=== PATIENT | male | born 1965 | race Caucasian/White ===

== ENCOUNTER 2023-12-01 11:12 | Day surgery (SDC) | payer BC ==
[2023-11-27 10:08] VITALS: BMI 36.9
[2023-12-01] MEDS: IV FLUID CONTINUATION 1,000 ML IV ONE (12:19)
[2023-12-01 12:29] VITALS: TEMP 96.8
[2023-12-01] MEDS ORDERED: PROPOFOL 10 MG/ML 20 ML VIAL IV ONE (12:46)
--- NOTE | 2023-12-01 12:48 | P.GSHP ---
History of Present Illness H&P Date: 12/01/23 58-year-old male here for colonoscopy. Last colonoscopy many many years ago he says. No bowel complaints. Family history of stomach cancer in his maternal grandmother. Past Medical History Past Medical History: Hypertension History of Any Multi-Drug Resistant Organisms: None Reported Past Surgical History: Orthopedic Surgery, Tonsillectomy Additional Past Surgical History / Comment(s): rotator cuff right, colonoscopy Past Anesthesia/Blood Transfusion Reactions: No Reported Reaction Additional Past Anesthesia/Blood Transfusion Reaction / Comment(s): no blood transfusion Smoking Status: Never smoker - Past Family History Mother Family Medical History: Cancer, Pulmonary Embolus Additional Family Medical History / Comment(s): bladder Medications and Allergies Home Medications Medication Instructions Recorded Confirmed Type Escitalopram [Lexapro] 5 mg PO HS 11/27/23 11/27/23 History Losartan [Cozaar] 50 mg PO HS 11/27/23 11/27/23 History Allergies Allergy/AdvReac Type Severity Reaction Status Date / Time cephalexin [From Keflex] AdvReac Rash/Hives Verified 12/01/23 12:20 Surgical - Exam Vital Signs Temp Pulse Resp BP Pulse Ox 96.8 F L 61 18 180/94 98 12/01/23 12:26 12/01/23 12:26 12/01/23 12:26 12/01/23 12:26 12/01/23 12:26 Physical exam: General: Well-developed, well-nourished HEENT: Normocephalic, sclerae nonicteric Abdomen: Nontender, nondistended Extremities: No edema Neuro: Alert and oriented Assessment and Plan (1) Colon cancer screening Narrative/Plan: Will proceed with colonoscopy at this time. Current Visit: Yes Status: Acute Code(s): Z12.11 - ENCOUNTER FOR SCREENING FOR MALIGNANT NEOPLASM OF COLON SNOMED Code(s): 387650036
--- NOTE | 2023-12-01 13:05 | P.PCN ---
Date of Procedure: 12/01/23 Procedure(s) Performed: PREOPERATIVE DIAGNOSIS: Colon cancer screening POSTOPERATIVE DIAGNOSIS: Transverse colon polyp, rectal polyp, diverticulosis PROCEDURE: Colonoscopy with snare polypectomy ANESTHESIA: MAC SURGEON: Reid Perdomo M.D. SPECIMENS: Polyps ENDOSCOPIC PROCEDURE: The patient was placed on the endoscopy table in the left decubitus position. The Olympus colonoscope was inserted into the anus and passed under direct visualization to the base of the cecum. The appendiceal orifice was visualized. From that point the scope was slowly withdrawn inspecting all surfaces carefully. There were no neoplastic inflammatory or polypoid lesions throughout the cecum and ascending colon. In the transverse colon a small polyp was seen and removed using the snare with cautery technique. Remainder of the transverse descending and sigmoid colon appeared normal. In the rectum another small polyp was seen and removed in a similar fashion. Mild scattered diverticulosis was seen. Digital rectal examination was normal. The patient was taken to the recovery room in stable condition per anesthesia guidelines. RECOMMENDATIONS: Await biopsy results.
[2023-12-01] MEDS ORDERED: LACTATED RINGERS 1,000 ML IV SCH (13:14)
[2023-12-01 13:27] VITALS: BP 152/89; PULSE 60; RESP 18
== END 2023-12-01 13:38 | disposition home or self-care (01) ==
LOC: ORWHC2ENDO 11:12
PROVIDERS: ATTEND Surgery
DX: Z12.11 Encounter for screening for malignant neoplasm of colon (principal); D12.3 Benign neoplasm of transverse colon; K57.30 Diverticulosis of large intestine without perforation or abscess without bleeding; D12.8 Benign neoplasm of rectum; I10 Essential (primary) hypertension; F41.9 Anxiety disorder, unspecified; Z80.0 Family history of malignant neoplasm of digestive organs; Z88.1 Allergy status to other antibiotic agents; Z90.89 Acquired absence of other organs; Z79.899 Other long term (current) drug therapy; Z98.890 Other specified postprocedural states
CPT/HCPCS: 45385; J2704; 88305

== ENCOUNTER 2024-08-02 10:26 | Emergency (ER) | payer BC ==
[2024-08-02 11:17] VITALS: RESP 20
--- NOTE | 2024-08-02 11:33 | ED ---
General Adult HPI - General Source: patient, family, RN notes reviewed Mode of arrival: ambulatory Limitations: no limitations <Wendie Wyatt - Last Filed: 08/02/24 19:18> <Rebekah Lauren - Last Filed: 08/03/24 22:35> - General Chief complaint: Allergic Reaction Stated complaint: congestion Time Seen by Provider: 08/02/24 11:29 - History of Present Illness Initial comments: 58-year-old male with history of hypertension presenting for anterior neck swelling X 1 day. Reports flulike symptoms such as nasal congestion and cough last week. Cough has become more productive. He is concerned because last night he began to feel swelling in his throat with a palpable nodule on the right side. He is able to swallow his own secretions with no difficulty swallowing or breathing. Denies drooling. He was sent from urgent care for CT scan of the neck. (Wendie Wyatt) - Related Data Home Medications Medication Instructions Recorded Confirmed Escitalopram [Lexapro] 5 mg PO HS 11/27/23 11/27/23 Losartan [Cozaar] 50 mg PO HS 11/27/23 11/27/23 Allergies Allergy/AdvReac Type Severity Reaction Status Date / Time cephalexin [From Keflex] AdvReac Rash/Hives Verified 12/01/23 12:20 Review of Systems ROS Other: All systems not noted in ROS Statement are negative. <Wendie Wyatt - Last Filed: 08/02/24 19:18> ROS Other: All systems not noted in ROS Statement are negative. <Rebekah Lauren - Last Filed: 08/03/24 22:35> ROS Statement: Those systems with pertinent positive or pertinent negative responses have been documented in the HPI. Past Medical History Past Medical History: Hypertension History of Any Multi-Drug Resistant Organisms: None Reported Past Surgical History: Orthopedic Surgery, Tonsillectomy Additional Past Surgical History / Comment(s): rotator cuff right, colonoscopy Past Anesthesia/Blood Transfusion Reactions: No Reported Reaction Additional Past Anesthesia/Blood Transfusion Reaction / Comment(s): no blood tr ansfusion Past Psychological History: No Psychological Hx Reported Smoking Status: Never smoker - Past Family History Mother Family Medical History: Cancer, Pulmonary Embolus Additional Family Medical History / Comment(s): bladder <Wendie Wyatt - Last Filed: 08/02/24 19:18> General Exam Limitations: no limitations General appearance: alert, in no apparent distress Head exam: Present: atraumatic, normocephalic, normal inspection Eye exam: Present: normal appearance, PERRL, EOMI. Absent: scleral icterus, conjunctival injection, periorbital swelling ENT exam: Present: normal exam, normal oropharynx, mucous membranes moist Neck exam: Present: full ROM. Absent: normal inspection (Edema and tenderness present prominently on the right side of neck), tenderness, meningismus, lymphadenopathy Respiratory exam: Present: normal lung sounds bilaterally, wheezes (Mild expiratory wheezes bilaterally). Absent: respiratory distress, rales, rhonchi, stridor Cardiovascular Exam: Present: regular rate, normal rhythm, normal heart sounds. Absent: systolic murmur, diastolic murmur, rubs, gallop, clicks Neurological exam: Present: alert, oriented X3 Psychiatric exam: Present: normal affect, normal mood Skin exam: Present: warm, dry, intact, normal color. Absent: rash <Wendie Wyatt - Last Filed: 08/02/24 19:18> Course Vital Signs 08/02/24 08/02/24 08/02/24 11:13 13:19 14:45 Temperature 99.7 F H 98.4 F 98.9 F Pulse Rate 84 78 Respiratory 20 20 Rate Blood Pressure 187/106 174/92 O2 Sat by Pulse 94 L 95 Oximetry Medical Decision Making - Lab Data Result diagrams: 08/02/24 11:42 08/02/24 11:42 <Wendie Wyatt - Last Filed: 08/02/24 19:18> - Lab Data Result diagrams: 08/02/24 11:42 08/02/24 11:42 <Rebekah Lauren - Last Filed: 08/03/24 22:35> - Medical Decision Making Was pt. sent in by a medical professional or institution (, PA, SULFONATION EQUIPMENT OPERATOR, urgent care, hospital, or group home...) When possible be specific @ -No Did you speak to anyone other than the patient for history (EMS, parent, family, police, friend...)? What history was obtained from this source @ -No Did you review nursing and triage notes (agree or disagree)? Why? @ -I reviewed and agree with nursing and triage notes Were old charts reviewed (outside hosp., previous admission, EMS record, old EKG, old radiological studies, urgent care reports/EKG's, group home records)? Report findings @ -No old charts were reviewed Differential Diagnosis (chest pain, altered mental status, abdominal pain women, abdominal pain men, vaginal bleeding, weakness, fever, dyspnea, syncope, headache, dizziness, GI bleed, back pain, seizure, CVA, palpatations, mental health, musculoskeletal)? @ -Viral URI, COVID-19, influenza, pneumonia, allergic reaction EKG interpreted by me (3pts min.). @ -None X-rays interpreted by me (1pt min.). @ -Chest x-ray reveals no acute process CT interpreted by me (1pt min.). @ -CT soft tissue neck reveals marked maxillary and ethmoid sinusitis, questio nable prominence of retropharyngeal soft tissues however no retropharyngeal abscess or discrete fluid collection U/S interpreted by me (1pt. min.). @ -None done What testing was considered but not performed or refused? (CT, X-rays, U/S, labs)? Why? @ -None What meds were considered but not given or refused? Why? @ -None Did you discuss the management of the patient with other professionals (manju brownlee i.e. , PA, SULFONATION EQUIPMENT OPERATOR, lab, RT, psych nurse, web content & social media manager, etl tester, teacher, business services officer, major case detective)? Give summary @ -No Was smoking cessation discussed for >3mins.? @ -No Was critical care preformed (if so, how long)? @ -No Were there social determinants of health that impacted care today? How? (Homelessness, low income, unemployed, alcoholism, drug addiction, transportation, low edu. Level, literacy, decrease access to med. care, snf, rehab)? @ -No Was there de-escalation of care discussed even if they declined (Discuss DNR or withdrawal of care, Hospice)? DNR status @ -No What co-morbidities impacted this encounter? (DM, HTN, Smoking, COPD, CAD, Cancer, CVA, ARF, Chemo, Hep., AIDS, mental health diagnosis, sleep apnea, morbid obesity)? @ -None Was patient admitted / discharged? Hospital course, mention meds given and route, prescriptions, significant lab abnormalities, going to OR and other pertinent info. @ -Discharge. 58-year-old male presenting for cough x 1 week. Also reports swelling to anterior neck since last night. Patient is well-appearing. Denies difficulty breathing or swallowing. No drooling or trismus. Patient is hypertensive however states he has whitecoat syndrome. Repeat blood pressure decreases to 172/90. CT soft tissue neck ordered due to palpable nodule in right neck per patient. CT soft tissue neck reveals questionable prominence of the retropharyngeal soft tissues however no retropharyngeal abscess or discrete fluid collection. This is inconsistent with patient's symptoms as he is having anterior swelling with palpable nodule. No concern for retropharyngeal abscess at this time. Patient is positive for influenza A. Chest x-ray reveals no acute process. Discussed results with patient. Appropriate return precautions and supportive care discussed. Case was discussed with the ED attending Dr. Lauren Undiagnosed new problem with uncertain prognosis? @ -No Drug Therapy requiring intensive monitoring for toxicity (Heparin, Nitro, Insulin, Cardizem)? @ -No Were any procedures done? @ -No Diagnosis/symptom? @ -Influenza A Acute, or Chronic, or Acute on Chronic? @ -Acute Uncomplicated (without systemic symptoms) or Complicated (systemic symptoms)? @ -Uncomplicated Side effects of treatment? @ -No Exacerbation, Progression, or Severe Exacerbation? @ -No Poses a threat to life or bodily function? How? (Chest pain, USA, MS, pneumonia, PE, COPD, DKA, ARF, appy, cholecystitis, CVA, Diverticulitis, Homicidal, Suicidal, threat to staff... and all critical care pts) @ -No (Wendie Wyatt) The patient denied symptoms of drooling, trismus, hoarseness or stridor. No difficulty swallowing or breathing (Rebekah Lauren) - Lab Data Lab Results 08/02/24 08/02/24 08/02/24 Range/Units 11:42 11:42 11:42 WBC 11.2 H (3.8-10.6) k/uL RBC 5.11 (4.30-5.90) m/uL Hgb 15.3 (13.0-17.5) gm/dL Hct 46.5 (39.0-53.0) % MCV 91.1 (80.0-100.0) fL MCH 30.0 (25.0-35.0) pg MCHC 33.0 (31.0-37.0) g/dL RDW 12.7 (11.5-15.5) % Plt Count 329 (150-450) k/uL MPV 7.0 Neutrophils % 81 % Lymphocytes % 10 % Monocytes % 6 % Eosinophils % 1 % Basophils % 0 % Neutrophils # 9.1 H (1.3-7.7) k/uL Lymphocytes # 1.1 (1.0-4.8) k/uL Monocytes # 0.7 (0-1.0) k/uL Eosinophils # 0.1 (0-0.7) k/uL Basophils # 0.0 (0-0.2) k/uL Sodium 137 (137-145) mmol/L Potassium 4.4 (3.5-5.1) mmol/L Chloride 100 (98-107) mmol/L Carbon Dioxide 27 (22-30) mmol/L Anion Gap 10 mmol/L BUN 15 (9-20) mg/dL Creatinine 0.81 (0.66-1.25) mg/dL Est GFR (CKD-EPI)AfAm >90 (>60 ml/min/1.73 sqM) Est GFR (CKD-EPI)NonAf >90 (>60 ml/min/1.73 sqM) Glucose 104 H (74-99) mg/dL Calcium 9.1 (8.4-10.2) mg/dL Total Bilirubin 1.0 (0.2-1.3) mg/dL AST 24 (17-59) U/L ALT 24 (4-49) U/L Alkaline Phosphatase 89 (38-126) U/L Total Protein 7.1 (6.3-8.2) g/dL Albumin 4.4 (3.5-5.0) g/dL Influenza Type A (PCR) Detected A (Not Detectd) Influenza Type B (PCR) Not Detected (Not Detectd) RSV (PCR) Not Detected (Not Detectd) SARS-CoV-2 (PCR) Not Detected (Not Detectd) Group A Strep (PCR) (Not Detectd) 08/02/24 Range/Units 11:42 WBC (3.8-10.6) k/uL RBC (4.30-5.90) m/uL Hgb (13.0-17.5) gm/dL Hct (39.0-53.0) % MCV (80.0-100.0) fL MCH (25.0-35.0) pg MCHC (31.0-37.0) g/dL RDW (11.5-15.5) % Plt Count (150-450) k/uL MPV Neutrophils % % Lymphocytes % % Monocytes % % Eosinophils % % Basophils % % Neutrophils # (1.3-7.7) k/uL Lymphocytes # (1.0-4.8) k/uL Monocytes # (0-1.0) k/uL Eosinophils # (0-0.7) k/uL Basophils # (0-0.2) k/uL Sodium (137-145) mmol/L Potassium (3.5-5.1) mmol/L Chloride (98-107) mmol/L Carbon Dioxide (22-30) mmol/L Anion Gap mmol/L BUN (9-20) mg/dL Creatinine (0.66-1.25) mg/dL Est GFR (CKD-EPI)AfAm (>60 ml/min/1.73 sqM) Est GFR (CKD-EPI)NonAf (>60 ml/min/1.73 sqM) Glucose (74-99) mg/dL Calcium (8.4-10.2) mg/dL Total Bilirubin (0.2-1.3) mg/dL AST (17-59) U/L ALT (4-49) U/L Alkaline Phosphatase (38-126) U/L Total Protein (6.3-8.2) g/dL Albumin (3.5-5.0) g/dL Influenza Type A (PCR) (Not Detectd) Influenza Type B (PCR) (Not Detectd) RSV (PCR) (Not Detectd) SARS-CoV-2 (PCR) (Not Detectd) Group A Strep (PCR) NOT DETECTED (Not Detectd) Disposition Is patient prescribed a controlled substance at d/c from ED?: No Time of Disposition: 14:20 <Wendie Wyatt - Last Filed: 08/02/24 19:18> <Rebekah Lauren - Last Filed: 08/03/24 22:35> Clinical Impression: Influenza A Disposition: HOME SELF-CARE Condition: Stable Instructions (If sedation given, give patient instructions): Influenza (ED) Additional Instructions: Please return to the Emergency Department if symptoms worsen or any other concerns. Referrals: Deb Perdomo MD [Primary Care Provider] - 1-2 days
[2024-08-02] MEDS: ACETAMINOPHEN TAB 500 MG TAB PO STA (11:43)
[2024-08-02 12:09] LABS: Basophils % (A) 0 %; Eosinophils # (A) 0.1 k/uL (0-0.7); Eosinophils % (A) 1 %; HCT 46.5 % (39.0-53.0); HGB 15.3 gm/dL (13.0-17.5); Lymphocytes # (A) 1.1 k/uL (1.0-4.8); Lymphocytes % (A) 10 %; MCV 91.1 fL (80.0-100.0); Monocytes # (A) 0.7 k/uL (0-1.0); Monocytes % (A) 6 %; Neutrophils # (A) 9.1 k/uL (1.3-7.7); Neutrophils % (A) 81 %; Platelet Count 329 k/uL (150-450); RBC 5.11 m/uL (4.30-5.90); RDW 12.7 % (11.5-15.5); WBC 11.2 k/uL (3.8-10.6)
[2024-08-02 12:32] LABS: Influenza A Detected (Not Detectd); Influenza B Not Detected (Not Detectd); RSV Not Detected (Not Detectd)
[2024-08-02 12:43] LABS: ALT 24 U/L (4-49); AST 24 U/L (17-59); African American GFR (CKD) >90 (>60 ml/min/1.73 sqM); Albumin 4.4 g/dL (3.5-5.0); Alkaline Phosphatase 89 U/L (38-126); Anion Gap 10 mmol/L; Blood Urea Nitrogen 15 mg/dL (9-20); Calcium 9.1 mg/dL (8.4-10.2); Carbon Dioxide 27 mmol/L (22-30); Chloride 100 mmol/L (98-107); Glucose 104 mg/dL (74-99); Non-African American GFR(CKD) >90 (>60 ml/min/1.73 sqM); Potassium 4.4 mmol/L (3.5-5.1); Sodium 137 mmol/L (137-145); Total Protein 7.1 g/dL (6.3-8.2)
--- NOTE | 2024-08-02 12:47 | XR ---
EXAMINATION TYPE: XR chest 2V DATE OF EXAM: 08/02/2024 12:43 PM COMPARISON: None TECHNIQUE: XR chest 2V Frontal and lateral views of the chest. CLINICAL INDICATION:Male, 58 years old with history of cough, shortness of breath; FINDINGS: Lungs/Pleura: There is no evidence of pleural effusion, focal consolidation, or pneumothorax. Pulmonary vascularity: Unremarkable. Heart/mediastinum: Cardiomediastinal silhouette is unremarkable. Musculoskeletal: Multiple level degenerative disc disease changes seen throughout the spine. IMPRESSION: No acute cardiopulmonary disease/process. [facility], , 08/02/2024 12:44 PM
--- NOTE | 2024-08-02 13:48 | CT ---
EXAMINATION TYPE: CT soft tissue neck w con DATE OF EXAM: 08/02/2024 1:24 PM COMPARISON: None CLINICAL INDICATION: Male, 58 years old with history of neck swelling x 1 day; PHH, Neck swelling x 1 day TECHNIQUE: CT scan of the neck is performed following with IV Contrast, patient injected with 100 ml mL of Isovu e 300. Axial images are obtained, coronal and sagittal reformatted images are reviewed. CT DLP: 509.[address] CTDI: mGy Automated exposure control for dose reduction was used. FINDINGS: The thyroid gland is not enlarged and there are no focal masses. The larynx including the thyroid, arytenoid, cricoid cartilages as well as the vocal cords are normal and symmetric without laryngeal mass. The tongue base, epiglottis, aryepiglottic folds, piriform sinuses and vallecula are normal and symme tric. The airway nasopharyngeal region is not visibly patent raising the question of prominence of the retr opharyngeal soft issues. There is no definite discrete fluid collection or abscess. The submandibular glands and parotid glands are normal and symmetric. The great vessels of the neck are normal. There is no adenopathy or abscess within the neck. Visualized osseous structures are intact. There are marked inflammatory changes in the maxillary , ethmoid air cells and sphenoid sinus consist ent with sinusitis. IMPRESSION: 1. Marked maxillary and ethmoid sinusitis. 2. Questionable prominence of the retropharyngeal soft tissues but no retropharyngeal abscess or disc rete fluid collection or mass. See above. [facility], , 08/02/2024 1:46 PM
[2024-08-02 14:46] VITALS: BP 174/92; PULSE 78; TEMP 98.9
== END 2024-08-02 14:46 | disposition home or self-care (01) ==
LOC: EC 10:26
DX: J10.1 Influenza due to other identified influenza virus with other respiratory manifestations (principal)
CPT/HCPCS: 36415; 87651; 80053; 85025; 87636; 71046; 70491; 99284; Q9967